=== PATIENT | female | born 1985 | race Caucasian/White ===

== ENCOUNTER 2016-04-06 14:40 | Emergency (ER) | payer OTHER ==
[2016-04-06 14:49] VITALS: BMI 26.8
[2016-04-06] MEDS ORDERED: SODIUM CHLORIDE 1,000 ML IV STA ×2 (15:07→16:12)
[2016-04-06] MEDS ORDERED: KETOROLAC TROMETHAMINE 30 MG/1 ML VIAL IVPUSH ONE (15:07)
[2016-04-06] MEDS ORDERED: ONDANSETRON 4 MG/2 ML VIAL IVPUSH ONE (15:07)
--- NOTE | 2016-04-06 15:07 | PDOC ---
History of Present Illness - General History Source: Patient, Old Records Exam Limitations: No Limitations <Daylin Dick - Last Filed: 04/06/16 15:05> - General History Source: Patient Exam Limitations: No Limitations - History of Present Illness Initial Comments: 04/06/16 15:32 The patient is a 31- year old female, with a significant past medical history of gallstones, who presents to the emergency department complaining of RUQ abdominal pain since this morning (about 05:00). The patient describes the pain as sharp and as if everything were being squeezed. The patient reports episodes of nausea and vomiting. She states her nausea is exacerbated when lying flat, but reports no alleviating factors. She reports her initial episodes of vomiting consisted of food, but became bilious and non-bloody approximately 6 hours ago. She reports 4-5 episodes of diarrhea secondary to vomiting symptoms. The patient reports she noted bloody stool in her episodes of diarrhea this morning. She reports associated fever (Temp: 102F) and dizziness, but denies chills, cough, and headache. She denies chest pain, diaphoresis, palpitations, and shortness of breath. She denies dysuria, frequency, urgency or hematuria. The patient reports a history of irregular periods. The patient denies any recent travel. The patient denies any sick contacts. Allergies: Amoxicillin (Emesis/ Hives), Penecillins. Past Surgical History: None reported. Social History: Non-smoker. Denies alcohol or drug use. <Bernard Hopkins - Last Filed: 04/06/16 15:48> - General Chief Complaint: Vomiting/Diarrhea Stated Complaint: VOMITING, DIARRHEA, ABD PAIN Time Seen by Provider: 04/06/16 14:59 Past History - Past Medical History Anemia: No Cardiac Disorders: No Other medical history: PCOS - Immunization History Immunization Up to Date: Yes - Psycho/Social/Smoking Cessation Hx Anxiety: No Suicidal Ideation: No Smoking Status: No Smoking History: Never smoked Have you smoked in the past 12 months: No Number of Cigarettes Smoked Daily: 0 Hx Alcohol Use: No Drug/Substance Use Hx: No Substance Use Type: None <Daylin Dick - Last Filed: 04/06/16 15:05> <Bernard Hopkins - Last Filed: 04/06/16 15:48> - Past Medical History Allergies/Adverse Reactions: Allergies Allergy/AdvReac Type Severity Reaction Status Date / Time Penicillins Allergy Mild Rash Verified 04/06/16 14:45 amoxicillin Allergy Verified 04/06/16 14:45 Home Medications: Ambulatory Orders NK [No Known Home Medication] 04/06/16 Review of Systems - Review of Systems Able to Perform ROS?: Yes Comments:: 04/06/16 15:33 GENERAL/CONSTITUTIONAL: +Fever. No chills. No weakness. HEAD, EYES, EARS, NOSE AND THROAT: No change in vision. No ear pain or discharge. No sore throat. CARDIOVASCULAR: No chest pain or shortness of breath. RESPIRATORY: No cough, wheezing, or hemoptysis. GASTROINTESTINAL: +RUQ abdominal pain. +Nausea, +vomiting, +diarrhea, and + melena. No constipation. GENITOURINARY: +Decreased urine output. No dysuria or frequency. MUSCULOSKELETAL: No joint or muscle swelling or pain. No neck or back pain. SKIN: No rash NEUROLOGIC: No headache, vertigo, loss of consciousness, or change in strength/ sensation. ENDOCRINE: No increased thirst. No abnormal weight change. HEMATOLOGIC/LYMPHATIC: No anemia, easy bleeding, or history of blood clots. ALLERGIC/IMMUNOLOGIC: No hives or skin allergy. <Bernard Hopkins - Last Filed: 04/06/16 15:48> *Physical Exam - Vital Signs Last Vital Signs Temp Pulse Resp BP Pulse Ox 99.7 F H 104 H 20 103/64 98 04/06/16 14:40 04/06/16 14:40 04/06/16 14:40 04/06/16 14:40 04/06/16 14:40 <Daylin Dick - Last Filed: 04/06/16 15:05> - Vital Signs Last Vital Signs Temp Pulse Resp BP Pulse Ox 99.7 F H 104 H 20 103/64 98 04/06/16 14:40 04/06/16 14:40 04/06/16 14:40 04/06/16 14:40 04/06/16 14:40 - Physical Exam Comments: 04/06/16 15:33 GENERAL: Awake, alert, and fully oriented, in no acute distress HEAD: No signs of trauma EYES: PERRLA, EOMI, sclera anicteric, conjunctiva clear ENT: Auricles normal inspection, hearing grossly normal, nares patent, oropharynx clear without exudates. Moist mucosa NECK: Normal ROM, supple, no lymphadenopathy, JVD, or masses LUNGS: Breath sounds equal, clear to auscultation bilaterally. No wheezes, and no crackles HEART: +Tachycardic. Normal S1 and S2, no murmurs, rubs or gallops ABDOMEN: +Epigastric RUQ tenderness with no guarding or rebound. +Negative Clayton sign. Normoactive bowel sounds. No masses EXTREMITIES: Normal range of motion, no edema. No clubbing or cyanosis. No cords, erythema, or tenderness NEUROLOGICAL: Cranial nerves II through XII grossly intact. Normal speech, normal gait SKIN: Warm, Dry, normal turgor, no rashes or lesions noted. <Bernard Hopkins - Last Filed: 04/06/16 15:48> ED Treatment Course - LABORATORY CBC & Chemistry Diagram: 04/06/16 15:10 04/06/16 15:10 - Medications Given in the ED: ED Medications Discontinued Medications Generic Name Dose Route Start Last Admin Trade Name Freq PRN Reason Stop Dose Admin Ketorolac Tromethamine 30 mg 04/06/16 15:07 04/06/16 15:15 Toradol Injection - IVPUSH 04/06/16 15:08 30 mg ONCE ONE Administration Ondansetron HCl 4 mg 04/06/16 15:07 04/06/16 15:21 Zofran Injection IVPUSH 04/06/16 15:08 4 mg ONCE ONE Administration <Bernard Hopkins - Last Filed: 04/06/16 15:48> Medical Decision Making - Medical Decision Making 04/06/16 15:05 31-year-old female with history of cholelithiasis who presents to the emergency department with nausea, vomiting, diarrhea and abdominal pain since 5 AM this morning. Differential diagnosis includes but is not limited to: Acute gastroenteritis, colitis, pancreatitis, gastritis, cholecystitis (unlikely given patient's clinical presentation), UTI, pyelonephritis, dehydration, electrolyte abnormality, toxic/metabolic derangement. Plan: 1. Labs 2. Urine 3. IV fluids for hydration 4. Antiemetics 5. Observe and reevaluate <Daylin Dick - Last Filed: 04/06/16 15:05> *DC/Admit/Observation/Transfer - Attestations Physician Attestion: 04/06/16 15:06 I, Dr. Daylin Dick, attest that the scribes documentation that appears above has been prepared under my direction and personally reviewed by me in its entirety. I confirmed that the note above accurately reflects all work, treatment, procedures, and medical decision-making performed by me. <Daylin Dick - Last Filed: 04/06/16 15:05> - Attestations Scribe Attestion: 04/06/16 15:33 Documentation prepared by Bernard Hopkins, acting as lpn or medical assistant for Daylin Dick MD. <Bernard Hopkins - Last Filed: 04/06/16 15:48> Diagnosis at time of Disposition: Nausea and vomiting, Diarrhea, Abdominal pain - Discharge Dispostion Condition at time of disposition: Stable - Referrals Referrals: Froy Padilla MD [Primary Care Provider] -
[2016-04-06] MEDS ORDERED: ONDANSETRON 4 MG/2 ML VIAL ONE (15:17)
[2016-04-06] MEDS ORDERED: KETOROLAC TROMETHAMINE 30 MG/1 ML VIAL ONE (15:17)
[2016-04-06 15:26] LABS: MCH 30.8 pg (25.7-33.7); MCHC 33.3 g/dl (32.0-36.0); MEAN CELL VOLUME 92.6 fl (80-96); MEAN PLT VOLUME 10.5 fl (7.5-11.1); PLATELET COUNT 259 K/MM3 (134-434); RDW 11.8 % (11.6-15.6); WHITE BLOOD COUNT 12.5 K/mm3 (4.0-10.0)
[2016-04-06 16:07] LABS: ALBUMIN 4.6 g/dl (3.5-5.0); ALK PHOS 42 U/L (32-92); ANION GAP 10 (8-16); BILIRUBIN,TOTAL 0.8 mg/dl (0.2-1.0); CALCIUM 9.1 mg/dl (8.4-10.2); CO2 23 mmol/L (22-28); CREATININE 0.6 mg/dl (0.6-1.3); GLUCOSE,RANDOM 114 mg/dl (74-106); SGOT/AST 44 U/L (10-42); SGPT/ALT 34 U/L (10-40); TOT PROT 7.8 g/dl (6.4-8.3)
[2016-04-06] MEDS ORDERED: ACETAMINOPHEN 500 MG TABLET (FP) PO ONE (17:35)
[2016-04-06] MEDS ORDERED: ACETAMINOPHEN 325 MG TABLET (FP) ONE (17:40)
[2016-04-06 17:49] LABS: URINE BILIRUBIN Negative (NEGATIVE); URINE GLUCOSE (UA) Negative (NEGATIVE); URINE KETONE Negative (NEGATIVE); URINE LEUK ESTERASE Negative (NEGATIVE); URINE NITRITE Negative (NEGATIVE); URINE PROTEIN Trace (NEGATIVE); URINE UROBILINOGEN 0.2 E.U/dl (0.2-1.0)
[2016-04-06 17:52] LABS: URINE APPEARANCE CLOUDY; URINE BLOOD 2+ (NEGATIVE); URINE COLOR YELLOW
[2016-04-06] MEDS ORDERED: IBUPROFEN 400 MG TABLET (FP) PO ONE ×2 (18:47→19:00)
--- NOTE | 2016-04-06 19:27 | PDOC ---
*Physical Exam - Vital Signs Last Vital Signs Temp Pulse Resp BP Pulse Ox 99.7 F H 104 H 20 103/64 98 04/06/16 14:40 04/06/16 14:40 04/06/16 14:40 04/06/16 14:40 04/06/16 14:40 - Physical Exam General Appearance: Yes: Nourished, Appropriately Dressed. No: Apparent Distress Respiratory/Chest: positive: Lungs Clear. negative: Chest Tender Gastrointestinal/Abdominal: positive: Normal Bowel Sounds. negative: Tender Musculoskeletal: negative: CVA Tenderness Neurologic: positive: Fully Oriented, Alert, Normal Mood/Affect, Normal Response , Motor Strength 07/31 ED Treatment Course - LABORATORY CBC & Chemistry Diagram: 04/06/16 15:10 04/06/16 15:10 - ADDITIONAL ORDERS Additional order review: Laboratory Results 04/06/16 04/06/16 15:10 15:10 Sodium 132 L Potassium 4.0 Chloride 99 Carbon Dioxide 23 Anion Gap 10 BUN 20 H Creatinine 0.6 Creat Clearance w eGFR > 60 Random Glucose 114 H Calcium 9.1 Total Bilirubin 0.8 AST 44 H ALT 34 Alkaline Phosphatase 42 Total Protein 7.8 Albumin 4.6 Lipase 18 L Serum , Qual Negative Urine Color Yellow Urine Appearance Cloudy Urine pH 6.0 Ur Specific [place] 1.020 Urine Protein Trace Urine Glucose (UA) Negative Urine Ketones Negative Urine Blood 2+ H Urine Nitrite Negative Urine Bilirubin Negative Urine Urobilinogen 0.2 e.u/dl Ur Leukocyte Esterase Negative 04/06/16 15:10 RBC 4.94 MCV 92.6 MCHC 33.3 RDW 11.8 MPV 10.5 Neutrophils % 91.0 H Lymphocytes % 4.0 L Monocytes % 1.0 L - Medications Given in the ED: ED Medications Discontinued Medications Generic Name Dose Route Start Last Admin Trade Name Freq PRN Reason Stop Dose Admin Acetaminophen 1,000 mg 04/06/16 17:35 04/06/16 17:48 Tylenol - PO 04/06/16 17:36 1,000 mg ONCE ONE Administration Sodium Chloride 1,000 mls @ 1,000 mls/hr 04/06/16 15:07 04/06/16 15:15 Normal Saline - IV 04/06/16 16:06 1,000 mls/hr ASDIR STA Administration Sodium Chloride 1,000 mls @ 1,000 mls/hr 04/06/16 16:12 04/06/16 17:48 Normal Saline - IV 04/06/16 17:11 1,000 mls/hr ASDIR STA Administration Ibuprofen 800 mg 04/06/16 18:47 04/06/16 19:00 Motrin - PO 04/06/16 18:48 800 mg ONCE ONE Administration Ketorolac Tromethamine 30 mg 04/06/16 15:07 04/06/16 15:15 Toradol Injection - IVPUSH 04/06/16 15:08 30 mg ONCE ONE Administration Ondansetron HCl 4 mg 04/06/16 15:07 04/06/16 15:21 Zofran Injection IVPUSH 04/06/16 15:08 4 mg ONCE ONE Administration *DC/Admit/Observation/Transfer Diagnosis at time of Disposition: Nausea and vomiting Qualifiers: Vomiting type: unspecified Vomiting Intractability: non-intractable Qualified Code(s): R11.2 - Nausea with vomiting, unspecified Diarrhea Qualifiers: Diarrhea type: unspecified type Qualified Code(s): R19.7 - Diarrhea, unspecified Abdominal pain Qualifiers: Abdominal location: generalized Qualified Code(s): R10.84 - Generalized abdominal pain - Discharge Dispostion Disposition: HOME Condition at time of disposition: Improved - Referrals Referrals: Froy Padilla MD [Primary Care Provider] - Call tomorrow - Patient Instructions Additional Instructions: TAKE MEDICATIONS PRESCRIBED PLENTY OF FLUIDS (WATER/GATORADE) BLAND DIET, ADVANCE TOLERATED EAT FREQUENT, SMALL MEALS THROUGHOUT THE DAY MAALOX, 30 ml 1/2 HOUR AFTER MEALS AND AT BED TIME RETURN IF FEVER, VOMITING, SEVERE PAIN - Post Discharge Activity
[2016-04-06 19:43] VITALS: BP 116/74; PULSE 89; TEMP 98
[2016-04-06 21:27] LABS: URINE BACTERIA FEW /hpf (NEGATIVE); URINE RBC 0-2 /hpf (0-3)
== END 2016-04-06 19:45 | disposition home or self-care (01) ==
LOC: FER 14:40 → SUPCPDRO 14:40 → FER 19:45
PROC: 3E0333Z Introduction of Anti-inflammatory into Peripheral Vein, Percutaneous Approach (ICD-10-PCS; principal; 2016-04-06)
PROC: 3E033GC Introduction of Other Therapeutic Substance into Peripheral Vein, Percutaneous Approach (ICD-10-PCS; 2016-04-06)
PROC: 3E0337Z Introduction of Electrolytic and Water Balance Substance into Peripheral Vein, Percutaneous Approach (ICD-10-PCS; 2016-04-06)
DX: R10.11 Right upper quadrant pain (principal); R11.2 Nausea with vomiting, unspecified; R19.7 Diarrhea, unspecified
CPT/HCPCS: 36415; 80053; 81003; 81015; 83690; 84703; 85025; 99282-25